=== PATIENT | female | born 1960 | race Asian ===

== ENCOUNTER 2023-03-13 07:18 | Day surgery (SDC) | payer OTHER ==
[~2023-03-13] VITALS: Ht 160 cm; Wt 68.0 kg
[2023-03-13] MEDS ORDERED: MIDAZOLAM 2 MG/2 ML VIAL ONE (08:10)
[2023-03-13] MEDS ORDERED: fentaNYL citrate 0.05 MG/ML VIAL ONE (08:10)
[2023-03-13] MEDS ORDERED: LIDOCAINE 2% 100 MG/5 ML UJET TP ONE (08:10)
[2023-03-13] MEDS ORDERED: fentaNYL citrate 0.05 MG/ML VIAL IVP ONE (09:55)
== END 2023-03-13 09:10 | disposition home or self-care (01) ==
LOC: MDS 07:18 → MMU 07:19 → MDS 09:10
PROVIDERS: ATTEND Internal Medicine Gastroenterology
DX: Z12.11 Encounter for screening for malignant neoplasm of colon (principal); K63.5 Polyp of colon; E11.9 Type 2 diabetes mellitus without complications; Z90.710 Acquired absence of both cervix and uterus; E78.5 Hyperlipidemia, unspecified
CPT/HCPCS: 45385; J3010; J2250